=== PATIENT | female | born 1960 | race Caucasian/White ===

== ENCOUNTER 2024-06-17 05:00 | Day surgery (SDC) | payer OTHER ==
[2024-06-09 07:59] LABS: PH,URINE 6.5 (5.0-8.0); URINE APPEARANCE Clear; URINE BILIRRUBIN Negative (NEGATIVE); URINE BLOOD Negative; URINE COLOR Yellow; URINE GLUCOSE Negative (NEGATIVE); URINE KETONE Negative (NEGATIVE); URINE LEUKOCYTE Negative; URINE NITRATE Negative; URINE PROTEIN Negative (NEGATIVE); URINE UROBILINOGEN 0.2 E.U./dl
[2024-06-09 08:01] LABS: HEMATOCRIT 40.4 % (36.0-45.00); HEMOGLOBIN 13.6 g/dL (12.0-15.00); MEAN CELL VOLUME 87.3 fL (80.00-100.00); MEAN CORPUSCULAR HEMOGLOBIN 29.4 pg (27.00-32.0); MEAN CORPUSCULAR HGB CONC 33.7 g/dl (32.0-36.0); PLATELET COUNT 208 K/uL (150-450); RED BLOOD COUNT 4.63 M/uL (4.00-6.00); RED CELL DISTRIBUTION WIDTH 12.8 % (11.5-14.5)
[2024-06-09 08:03] LABS: URINE BACTERIA 724.2 uL (0.0-1933); URINE EPITHELIAL CELLS 31.6 uL (0.0-38.8); URINE RBC 2.9 uL (0.0-20.8); URINE WBC 3.5 uL (0.0-23.2)
[2024-06-09 08:52] LABS: ALBUMIN 3.4 gm/dL (3.4-5.0); BILIRUBIN TOTAL 0.47 mg/dL (0.3-1.2); CALCIUM 9.6 mg/dL (8.5-10.1); CREATININE SERUM 0.76 mg/dL (0.55-1.02); GFR 76.62; GLOBULINA 3.8 G/DL (2.4-3.5); PARTIAL THROMBOPLASTIN TIME 26.1 SECONDS (22.0-34.0); POTASSIUM 4.32 mEq/L (3.5-5.1); PROTHROMBIN TIME 10.4 SECONDS (9.0-11.5); TOTAL PROTEIN 7.2 gm/dL (6.4-8.2)
[~2024-06-17 05:00] MED LIST: ATIVAN2 M1; ATIVAN2 MG/1 ML; ATORVASTATIN CA40 MG; HUMULIN 70100 UNIT/2; LEXAPRO20 MG; LOZARTAN 50MG; OZEMPIC1 MG/0.71; RESTORIL 30 MG; SEROQUEL 100MG; SINGULAIR10 MG; ZETIA10 MG
[2024-06-17] MEDS ORDERED: LIDOCAINE HCL 1% 20ML VIAL IJ ONE (08:00)
[2024-06-17] MEDS ORDERED: CEFAZOLIN SODIUM 1,000 MG VIAL IV SCH ×2 (08:00→09:00)
[2024-06-17] MEDS ORDERED: LIDOCAINE HCL 2%/EPINEPHRINE 20ML VIAL IJ ONE (08:00)
[2024-06-17] MEDS ORDERED: FAMOTIDINE/PF 20 MG/10 ML SYRINGE IV SCH (09:00)
== END 2024-06-17 10:22 | disposition home or self-care (01) ==
LOC: CIR.AMB 05:00
PROVIDERS: ATTEND Specialist
DX: D21.22 Benign neoplasm of connective and other soft tissue of left lower limb, including hip (principal)